=== PATIENT | male | born 1990 | race Hispanic/Latino ===

== ENCOUNTER 2024-10-05 12:07 | Emergency (ER) | payer SELFPAY ==
[2024-10-05] MEDS ORDERED: LIDOCAINE 1% MPF 5 ML VIAL ONE (13:46)
[2024-10-05] MEDS ORDERED: TDAP (DIPHTH,PERTUSS(ACELL),TET VAC) 0.5 ML VIAL IMVAC ONE (13:46)
[2024-10-05] MEDS ORDERED: MORPHINE 4 MG/ML SYR ONE (13:46)
[2024-10-05] MEDS ORDERED: ONDANSETRON 4 MG (ODT) TAB ONE (13:46)
--- NOTE | 2024-10-05 14:51 | RAD REPORT ---
EXAM: CT brain without contrast HISTORY: TRAUMA COMPARISON: None TECHNIQUE: Multiple contiguous axial images were obtained and a CT of the brain without contrast. Sag ittal and coronal reformats were performed. One or more of the following dose reduction techniques were used: Automated exposure control, adjust ment of the mA and/or kV according to patient size, and/or iterative reconstruction. FINDINGS: No evidence of hydrocephalus, intracranial hemorrhage, or extra-axial fluid collection. The brain is normal in morphology. No evidence of midline shift or areas of brain edema. The calvarium is intact. The visualized paranasal sinuses and mastoid air cells are essentially clear . IMPRESSION: No evidence of acute intracranial abnormality. EXAM: CT of the cervical spine without contrast HISTORY: Neck pain, injury TRAUMA TECHNIQUE: Multiple contiguous axial images were obtained in a CT of the cervical spine without contr ast. Sagittal and coronal reformats were performed. FINDINGS: The vertebral bodies demonstrate normal height and alignment. No evidence of acute fracture or subluxation.. No degenerative changes are present. No prevertebral soft tissue swelling is seen. The posterior facets are well aligned. Normal alignment of the skull base with the cervical spine is seen. The lung apices are unremarkable. IMPRESSION: No evidence of acute osseous abnormality of the cervical spine.
--- NOTE | 2024-10-05 14:54 | RAD REPORT ---
EXAMINATION: XR RIGHT TIBIA AND FIBULA CLINICAL INDICATION: puncture, fb eval;Pain TECHNIQUE:Two view radiograph of the right tibia and fibula were obtained. COMPARISON: No prior exam. FINDINGS: No bone or joint abnormality detected. No radiopaque foreign body.
--- NOTE | 2024-10-05 14:55 | RAD REPORT ---
EXAMINATION: XR RIGHT FOOT CLINICAL INDICATION: Male, 34 years old. PAIN TECHNIQUE: Multiple views of the right foot were obtained. COMPARISON: No prior exam. FINDINGS: No significant bone or joint abnormality. Moderate plantar calcaneal spur.
--- NOTE | 2024-10-05 16:56 | EDPHYS ---
[facility] Name: Martinez Ruvalcaba Age: 34 yrs Sex: Male : 1990 Arrival Date: 10/05/2024 Time: 12:07 Bed 12 Private MD: ED Physician Chad Erickson HPI: 10/05 18:23 This 34 yrs old Male presents to ER via Wheelchair with complaints of Fall sb4 Injury - 8 ft fall. 18:23 fell off of a ladder at work today. no loc. sustained laceration to right forehead, sb4 puncture wound to right calf. complains of pain in right toes. no headache, nausea, vomiting, dizziness. no history of blood thinners or any medical problems. Historical: - Allergies: 12:13 paracetamol; ll1 - PMHx: 12:13 None; ll1 - PSHx: 12:13 None; ll1 - Immunization history:: Adult Immunizations up to date. - Social history:: Smoking status: Patient reports the use of cigarette tobacco products, smokes one-half pack cigarettes per day. ROS: 18:23 Constitutional: Negative for fever, chills, and weight loss, sb4 18:23 MS/extremity: Positive for pain, of the right third toe and right fourth toe, 18:23 Skin: Positive for laceration(s), of the forehead, puncture wound right calf, 18:23 All other systems are negative, Exam: 18:23 Constitutional: This is a well developed, well nourished patient who is awake, alert, sb4 and in no acute distress. Head/Face: Normocephalic, atraumatic. Eyes: Extra-ocular motions intact. Periorbital areas with no swelling, redness, or edema. ENT: Mucous membranes moist. Respiratory: No increased work of breathing, no retractions or nasal flaring. Abdomen/GI: Soft, non-tender, no distension. 18:23 Skin: injury, laceration(s), the wound is approximately 4 cm(s), with a depth of .5 cm(s), of the forehead, that can be described as clean, no foreign body, irregular, without bleeding, puncture(s), that are superficial, of the medial aspect of right calf, Vital Signs: 12:14 BP 121 / 84; Pulse 82; Resp 17; Temp 97.9; Pulse Ox 100% ; Weight 72.57 kg; Height 5 ll1 ft. 6 in. ; Pain 6/10; 17:17 BP 123 / 87; Pulse 87; Resp 16; Pulse Ox 100% on R/A; jb4 12:14 Body Mass Index 25.82 (72.57 kg, 167.64 cm) ll1 12:14 Pain Scale: Adult ll1 Selene Coma Score: 13:35 Eye Response: spontaneous(4). Motor Response: obeys commands(6). Verbal Response: jb4 oriented(5). Total: 15. 17:17 Eye Response: spontaneous(4). Motor Response: obeys commands(6). Verbal Response: jb4 oriented(5). Total: 15. Trauma Score (Adult): 13:35 Eye Response: spontaneous(1); Verbal Response: oriented(1); Motor Response: obeys jb4 commands(2); Systolic BP: > 89 mm Hg(4); Respiratory Rate: 10 to 29 per min(4); Selene Score: 15; Trauma Score: 12 17:17 Eye Response: spontaneous(1); Verbal Response: oriented(1); Motor Response: obeys jb4 commands(2); Systolic BP: > 89 mm Hg(4); Respiratory Rate: 10 to 29 per min(4); [place] Score: 15; Trauma Score: 12 Laceration: 18:25 Wound Repair of 4cm ( 1.6in ) subcutaneous laceration to forehead. Distal sb4 neuro/vascular/tendon intact. Anesthesia: Local anesthetic administered with 5 mls of 1% lidocaine. Wound prep: Simple cleansing with hibiclenz by in, Wound irrigation with saline by in, Copious irrigation. Skin closed with 4 5-0 Prolene using simple sutures and sterile technique. Patient tolerated well. MDM: 13:11 Medical Screening Exam initiated sb4 18:25 Data reviewed: vital signs, nurses notes, lab test result(s), radiologic studies, and sb4 as a result, I will discharge patient. 18:25 Counseling: I had a detailed discussion with the patient and/or guardian regarding the sb4 historical points, exam findings, and any diagnostic results supporting the discharge/admit diagnosis, radiology results, the need for outpatient follow up, for definitive care, for suture removal in 5-7 days, to return to the emergency department if symptoms worsen or persist or if there are any questions or concerns that arise at home. 10/05 13:37 Order name: Head C Spine MPR Wo Con CT; Complete Time: 14:54 sb4 10/05 13:37 Order name: Foot Right 3 View XRAY; Complete Time: 14:56 sb4 10/05 13:37 Order name: Tib Fib Right XRAY; Complete Time: 14:56 sb4 10/05 13:40 Order name: Wound Care; Complete Time: 17:08 sb4 Administered Medications: 13:41 CANCELLED (Physician Discretion): hydrocodone-acetaminophen5 mg-325 mg 2 tabs PO once sb4 14:02 Drug: Boostrix Tdap IM 0.5 ml IM once; as a single dose Route: IM; Site: right deltoid; jb4 17:08 Follow up: Response: No adverse reaction jb4 14:02 Drug: morphine IM 4 mg IM once Route: IM; Site: left deltoid; jb4 17:08 Follow up: Response: No adverse reaction; Marked relief of symptoms; Pain is decreased jb4 14:03 Drug: Ondansetron PO 4 mg PO once Route: PO; jb4 17:08 Follow up: Response: No adverse reaction; Marked relief of symptoms jb4 16:50 Drug: Lidocaine Infiltration (1 %) 5 ml 5 ml Infiltration once; to bedside Volume: 5 jb4 ml; Route: Infiltration; 17:08 Follow up: Response: No adverse reaction jb4 Disposition Summary: 10/05/24 16:55 Discharge Ordered Notes: Location: Home sb4 Problem: new sb4 Symptoms: have improved sb4 Condition: Stable sb4 Diagnosis - Fall (on)(from) incline sb4 - Laceration of right forehead sb4 - Puncture wound without foreign body of right calf sb4 - Contusion of right foot, initial encounter sb4 Followup: sb4 - With: Private Physician - When: 1 week - Reason: Staple/Suture removal Discharge Instructions: - Discharge Summary Sheet sb4 - Foot Sprain sb4 - Laceration Care, Adult, [id number] sb4 - Puncture Wound, [id number] sb4 - Head Injury, Adult, [id number] sb4 Forms: - Antibiotic Education sb4 - Patient Portal Instructions sb4 - Leadership Thank You Letter sb4 Prescriptions: - Cephalexin 500 mg Oral Capsule - take 1 capsule ORAL route every 8 hours for 10 days; 30 capsule; Refills: 0, sb4 Product Selection Permitted Signatures: Dispatcher [employer] EDPatrick Choudhary, RN RN jb4 Venus Mims RN RN ll1 Elizabeth Rice PA-C PA-C sb4 Corrections: (The following items were deleted from the chart) 13:38 13:38 Foot Right 3 View+RAD.RAD.BRZ ordered. EDMS EDMS 13:38 13:38 Tib Fib Right+RAD.RAD.BRZ ordered. EDMS EDMS 13:41 13:40 HYDROcodone-acetaminophen PO 5 mg-325 mg 2 tabs PO once ordered. sb4 sb4
--- NOTE | 2024-10-05 16:56 | ER ---
Nurse's Notes [facility] Name: Martinez Ruvalcaba Age: 34 yrs Sex: Male : 1990 Arrival Date: 10/05/2024 Time: 12:07 Bed 12 Private MD: Diagnosis: Fall (on)(from) incline;Laceration of right forehead;Puncture wound without foreign body of right calf;Contusion of right foot, initial encounter Presentation: 10/05 12:14 Chief complaint: Patient states: Fell off ladder about 8 feet. No LOC. Laceration to R ll1 side of head, bleeding controlled. R knee pain also with limp. Coronavirus screen: Client denies travel out of the [place] in the last 14 days. At this time, the client does not indicate any symptoms associated with coronavirus-19. Ebola Screen: Patient denies travel to an Ebola-affected area in the 21 days before illness onset. Initial Sepsis Screen: Does the patient meet any 2 criteria? No. Patient's initial sepsis screen is negative. Does the patient have a suspected source of infection? No. Patient's initial sepsis screen is negative. Risk Assessment: Do you want to hurt yourself or someone else? Patient reports no desire to harm self or others. Onset of symptoms was October 05, 2024. 12:14 Method Of Arrival: Wheelchair ll1 12:14 Acuity: RASHEEDA 3 ll1 Triage Assessment: 12:22 General: Appears uncomfortable, Behavior is calm, cooperative, appropriate for age. ll1 Pain: Complains of pain in scalp Quality of pain is described as aching. Neuro: Reports headache. Derm: Reports laceration R side of forehead. Musculoskeletal: Reports pain in R knee. Historical: - Allergies: 12:13 paracetamol; ll1 - PMHx: 12:13 None; ll1 - PSHx: 12:13 None; ll1 - Immunization history:: Adult Immunizations up to date. - Social history:: Smoking status: Patient reports the use of cigarette tobacco products, smokes one-half pack cigarettes per day. Screenin:35 Abuse screen: Denies threats or abuse. Tuberculosis screening: No symptoms or risk jb4 factors identified. 17:17 [facility] ED Fall Risk Assessment (Adult) History of falling in the last 3 months, jb4 including since admission Yes- single mechanical fall (1 pt) Confusion or Disorientation No (0 pts) Intoxicated or Sedated No (0 pts) Impaired Gait No (0 pts) Mobility Assist Device Used No (0 pt) Altered Elimination No (0 pt) Score/Fall Risk Level 0 - 2 = Low Risk Oriented to surroundings, Maintained a safe environment. Nutritional screening: No deficits noted. Primary Survey: 13:35 NO uncontrolled hemorrhage observed. A: The client is awake and alert. The airway is jb4 patent. Breathing/Chest: Spontaneous respiratory effort, equal unlabored respirations, breath sounds clear bilaterally, regular pattern, symmetrical chest rise and fall. Circulation: No external hemorrhage present. Regular and strong central pulse, skin warm/dry/normal color. Disability Pupils are equal, round, reactive to light and accommodation. Client is alert. Exposure/Environment: All clothing and personal items were removed. Forensic evidence collection is not deemed to be indicated at this time. Items placed in patient belonging bag. Assessment: 13:35 General: Appears in no apparent distress. uncomfortable, Behavior is calm, cooperative. jb4 Pain: Complains of pain in forehead, lateral side of right foot and medial aspect of right calf Pain does not radiate. Pain currently is 10 out of 10 on a pain scale. Neuro: Level of Consciousness is awake, alert, obeys commands, Oriented to person, place, time, situation. Cardiovascular: Patient's skin is warm and dry. Respiratory: Airway is patent Respiratory effort is even, unlabored, Respiratory pattern is regular, symmetrical. Derm: Skin is intact, Skin is pink, warm \T\ dry. Musculoskeletal: Circulation, motion, and sensation intact. Range of motion: intact in all extremities. Injury Description: Laceration sustained to forehead is clean, 2.6 to 7.5 cm long, not bleeding, a small amount of bleeding noted at this time. Puncture sustained to medial aspect of right calf is superficial. 14:45 Reassessment: Patient appears in no apparent distress at this time. Patient and/or jb4 family updated on plan of care and expected duration. Pain level reassessed. Patient is alert, oriented x 3, equal unlabored respirations, skin warm/dry/pink. 15:45 Reassessment: Patient appears in no apparent distress at this time. Patient and/or jb4 family updated on plan of care and expected duration. Pain level reassessed. Patient is alert, oriented x 3, equal unlabored respirations, skin warm/dry/pink. 16:20 Reassessment: Patient appears in no apparent distress at this time. Patient and/or jb4 family updated on plan of care and expected duration. Pain level reassessed. Patient is alert, oriented x 3, equal unlabored respirations, skin warm/dry/pink. Vital Signs: 12:14 BP 121 / 84; Pulse 82; Resp 17; Temp 97.9; Pulse Ox 100% ; Weight 72.57 kg; Height 5 ll1 ft. 6 in. ; Pain 6/10; 17:17 BP 123 / 87; Pulse 87; Resp 16; Pulse Ox 100% on R/A; jb4 12:14 Body Mass Index 25.82 (72.57 kg, 167.64 cm) ll1 12:14 Pain Scale: Adult ll1 [place] Coma Score: 13:35 Eye Response: spontaneous(4). Motor Response: obeys commands(6). Verbal Response: jb4 oriented(5). Total: 15. 17:17 Eye Response: spontaneous(4). Motor Response: obeys commands(6). Verbal Response: jb4 oriented(5). Total: 15. Trauma Score (Adult): 13:35 Eye Response: spontaneous(1); Verbal Response: oriented(1); Motor Response: obeys jb4 commands(2); Systolic BP: > 89 mm Hg(4); Respiratory Rate: 10 to 29 per min(4); Selene Score: 15; Trauma Score: 12 17:17 Eye Response: spontaneous(1); Verbal Response: oriented(1); Motor Response: obeys jb4 commands(2); Systolic BP: > 89 mm Hg(4); Respiratory Rate: 10 to 29 per min(4); Selene Score: 15; Trauma Score: 12 ED Course: 12:09 Patient arrived in ED. mr 12:16 Triage completed. ll1 12:23 Arm band placed on. ll1 12:42 Elizabeth Rice PA-C is PHCP. sb4 12:42 Chad Erickson MD is Attending Physician. sb4 13:35 Patient has correct armband on for positive identification. Bed in low position. Call jb4 light in reach. Side rails up X 1. 13:35 Patient maintains SpO2 saturation greater than 95% on room air. jb4 14:43 Head C Spine MPR Wo Con CT In Process Unspecified. EDMS 14:44 Foot Right 3 View XRAY In Process Unspecified. EDMS 14:44 Tib Fib Right XRAY In Process Unspecified. EDMS 16:20 Patrick Veloz, RN is Primary Nurse. jb4 17:17 Provided Education on: discharge instructions.. jb4 17:17 No provider procedures requiring assistance completed. Patient did not have IV access jb4 during this emergency room visit. Administered Medications: 13:41 CANCELLED (Physician Discretion): hydrocodone-acetaminophen5 mg-325 mg 2 tabs PO once sb4 14:02 Drug: Boostrix Tdap IM 0.5 ml IM once; as a single dose Route: IM; Site: right deltoid; jb4 17:08 Follow up: Response: No adverse reaction jb4 14:02 Drug: morphine IM 4 mg IM once Route: IM; Site: left deltoid; jb4 17:08 Follow up: Response: No adverse reaction; Marked relief of symptoms; Pain is decreased jb4 14:03 Drug: Ondansetron PO 4 mg PO once Route: PO; jb4 17:08 Follow up: Response: No adverse reaction; Marked relief of symptoms jb4 16:50 Drug: Lidocaine Infiltration (1 %) 5 ml 5 ml Infiltration once; to bedside Volume: 5 jb4 ml; Route: Infiltration; 17:08 Follow up: Response: No adverse reaction jb4 Medication: 17:17 VIS not applicable for this client. jb4 Outcome: 16:55 Discharge ordered by MD. sb4 17:17 Discharged to home ambulatory, with friend, jb4 17:17 Condition: stable 17:17 Discharge instructions given to patient, Instructed on discharge instructions, follow up and referral plans. medication usage, Demonstrated understanding of instructions, follow-up care, medications, Prescriptions given X 1, 17:20 Patient left the ED. jb4 Signatures: Dispatcher [employer] EDIN Anabel Arambula, Monroe Childress mr Patrick Veloz, RN RN jb4 Venus Mims RN RN ll1 Elizabeth Rice, PAFranklin PAFranklin sb4 Corrections: (The following items were deleted from the chart) 12:23 12:14 Chief complaint: Patient states: Fell off ladder about 8 feet. Laceration to R ll1 side of head. R knee pain also with limp ll1
[2024-10-05 17:30] VITALS: TEMP 97.9; O2SAT 100
[2024-10-05 17:31] VITALS: BP 123/87
== END 2024-10-05 17:20 | disposition home or self-care (01) ==
LOC: ER 12:07
DX: S01.81XA Laceration without foreign body of other part of head, initial encounter (principal); S81.831A Puncture wound without foreign body, right lower leg, initial encounter; S90.31XA Contusion of right foot, initial encounter; W11.XXXA Fall on and from ladder, initial encounter
CPT/HCPCS: 12032; 70450; 72125; 96372; 99284; J2003; Q0162